=== PATIENT | male | born 1940 | race Caucasian/White ===

== ENCOUNTER 2022-12-30 14:47 | Outpatient (CLI) | payer MEDICARE, OTHER, SELFPAY ==
--- NOTE | ~2022-12-30 | MR_ITS ---
EXAMINATION: MR pelvis wo/w con DATE: 12/30/2022 16:39 INDICATION: Malignant neoplasm of prostate. TECHNIQUE: Magnetic resonance imaging (MRI) of the pelvis was performed without and with 20 mL MultiH ance intravenous contrast. COMPARISON: None. FINDINGS: There are bilateral inguinal hernias containing fat. The prostate is normal in size. There is diverti culosis of the colon without evidence of diverticulitis. There are no pathologically enlarged lymph n odes. There are ventral hernias containing nonobstructed small bowel. 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 IMPRESSION: 1. No evidence of metastatic disease. 2. Ventral hernias containing nonobstructed small bowel. Reviewed, dictated and finalized at location E.
== END 2022-12-30 14:48 | disposition home or self-care (01) ==
PROVIDERS: PCP Internal Medicine; Visit Provider Radiology Radiation Oncology
DX: C61 Malignant neoplasm of prostate (principal); K43.9 Ventral hernia without obstruction or gangrene
CPT/HCPCS: 72197; A9577